=== PATIENT | female | born 1965 | race Caucasian/White ===

== ENCOUNTER 2016-10-27 05:58 | Emergency (ER) | payer MEDICAID, OTHER ==
[~2016-10-27] VITALS: Ht 157.5 cm; Wt 61.5 kg
[2016-10-27 06:05] VITALS: Ht 157.5 cm; Wt 61.5 kg
[2016-10-27] MEDS ORDERED: SOD CHLORIDE 0.9% 1,000 ML IV STA (06:15)
--- NOTE | 2016-10-27 06:45 | RADRPT ---
PROCEDURE: XR Chest. CLINICAL INDICATION: Syncope TECHNIQUE: Portable single view of the chest COMPARISON: None. FINDINGS: The heart size appears within normal limits. Slight aortic calcification is seen. No acute infiltr ate, pleural effusion, or overt congestive heart failure is seen. No bony abnormality is seen. IMPRESSION: Aortic atherosclerosis. RPTAT: [facility] Kortney Estrada Physician Date Time Electronically viewed and signed by Kortney Estrada, Physician on 10/27/2016 06:45 LE/
[2016-10-27 06:52] LABS: ADD SCAN DIFF NO
[2016-10-27 07:00] LABS: BASOPHILS % 0.4 % (0.0-2.0); EOSINOPHILS # 0.3 10^3/ul (0.0-0.5); HEMATOCRIT 39.3 % (37.0-47.0); HEMOGLOBIN 13.2 g/dl (12.0-16.0); LYMPHOCYTES # 1.9 10^3/ul (0.8-2.9); LYMPHOCYTES % 18.2 % (15.0-51.0); MEAN CORPUSCULAR HEMOGLOBIN 31.1 pg (29.0-33.0); MEAN CORPUSCULAR HGB CONC 33.6 g/dl (32.0-37.0); MEAN CORPUSCULAR VOLUME 92.5 fl (82.0-101.0); MEAN PLATELET VOLUME 9.5 fl (7.4-10.4); MONOCYTE # 0.5 10^3/ul (0.3-0.9); MONOCYTES % 5.2 % (0.0-11.0); NEUTROPHIL # 7.6 10^3/ul (1.6-7.5); NEUTROPHILS % 72.9 % (39.0-77.0); PLATELET COUNT 271 10^3/UL (140-415); RED BLOOD COUNT 4.25 10^6/ul (4.20-5.40); WHITE BLOOD COUNT 10.4 10^3/ul (4.8-10.8)
--- NOTE | 2016-10-27 07:04 | RADRPT ---
PROCEDURE: CT Brain without contrast. CLINICAL INDICATION: Syncope TECHNIQUE: Axial images from the skull base through the vertex without IV contrast. Multiplanar r eformatted images were made. Images were reviewed on a PACS workstation. The CTDIvol is 45.01 mGy and the DLP is 720.23 mGycm. One or more of the following dose reduction techniques were used: auto mated exposure control, adjustment of the mA and/or kV according to patient size, or use of iterativ e reconstruction technique. COMPARISON: None. FINDINGS: The ventricles and cisterns are normal for age. There is no evidence for territorial infarction or intracranial hemorrhage. No mass or midline shift is seen. No extra-axial fluid collection is seen . The visualized paranasal sinuses and mastoids are clear. IMPRESSION: No definite acute intracranial abnormality. RPTAT: [facility] Physician Galilea Date Time Electronically viewed and signed by Physician Galilea on 10/27/2016 07:04 [email or web address]/
[2016-10-27 07:09] LABS: CHLORIDE 108 mmol/L (97-110); SODIUM 141 mmol/L (135-144)
[2016-10-27 07:10] LABS: POTASSIUM 3.7 mmol/L (3.5-5.1)
[2016-10-27 07:12] LABS: CREATININE 0.62 mg/dl (0.44-1.00)
[2016-10-27 07:13] LABS: ANION GAP 7 (8-16); BLOOD UREA NITROGEN 8 mg/dl (7-20); CALCIUM 9.2 mg/dl (8.4-10.2); CARBON DIOXIDE 30 mmol/L (21-31); GLUCOSE 107 mg/dl (70-220)
[2016-10-27 07:25] LABS: TROPONIN-I < 0.012 ng/ml (0.00-0.12)
[2016-10-27 07:48] LABS: URINE BILIRUBIN (Dip) NEGATIVE (NEGATIVE); URINE BLOOD (Dip) NEGATIVE (NEGATIVE); URINE COLOR LT. YELLOW (YELLOW); URINE GLUCOSE (Dip) NEGATIVE (NEGATIVE); URINE KETONES (Dip) NEGATIVE (NEGATIVE); URINE LEUKOCYTE ESTERASE (Dip) NEGATIVE (NEGATIVE); URINE NITRITE (Dip) NEGATIVE (NEGATIVE); URINE UROBILINOGEN (Dip) 0.2 E.U./dL (0.1-1.0)
[2016-10-27 07:49] LABS: ADD UMIC NO; URINE TOTAL PROTEIN (Dip) NEGATIVE (NEGATIVE)
[2016-10-27 07:52] VITALS: BP 98/66; PULSE 66; RESP 18
--- NOTE | 2016-10-27 08:16 | ERA ---
ER Documentation Chief Complaint Date/Time DATE: 10/27/16 TIME: 08:15 Chief Complaint multiple syncopal episodes since 0300 am. aox4 during intake HPI This is a 51-year-old female suffered 3-4 syncopal episodes in the last 12 hours. No seizure-like activity. No palpitations. Patient said she felt lightheaded every single time. No nausea no vomiting no chills. No chest pain. Patient has no medical history and is not on any current medications. ROS All systems reviewed and are negative except as per history of present illness. Medications Home Meds No Active Prescriptions or Reported Meds Allergies Allergies: Coded Allergies: No Known Drug Allergies (Verified Allergy, Unknown, 10/27/16) PMhx/Soc Medical and Surgical Hx: pt denies Medical Hx, pt denies Surgical Hx History of Surgery: No Anesthesia Reaction: No Hx Neurological Disorder: No Hx Respiratory Disorders: No Hx Cardiac Disorders: No Hx Psychiatric Problems: No Hx Miscellaneous Medical Probl: No Hx Alcohol Use: No Hx Substance Use: No Hx Tobacco Use: No Smoking Status: Never smoker Physical Exam Vitals Vital Signs Date Time Temp Pulse Resp B/P Pulse Ox O2 Delivery O2 Flow Rate FiO2 10/27/16 07:52 66 18 98/66 98 Room Air 10/27/16 06:05 97.1 48 20 99/65 98 Physical Exam Const: [] Head: Atraumatic Eyes: Normal Conjunctiva ENT: Normal External Ears, Nose and Mouth. Neck: Full range of motion..~ No meningismus. Resp: Clear to auscultation bilaterally Cardio: Regular rate and rhythm, no murmurs Abd: Soft, non tender, non distended. Normal bowel sounds Skin: No petechiae or rashes Back: No midline or flank tenderness Ext: No cyanosis, or edema Neur: Awake and alert Psych: Normal Mood and Affect Result Diagram: 10/27/1645 10/27/1645 Results 24 hrs Laboratory Tests Test 10/27/16 06:11 10/27/16 06:34 10/27/16 06:45 Bedside Glucose 82mg/dL 105mg/dL White Blood Count 10.410^3/ul Red Blood Count 4.2510^6/ul Hemoglobin 13.2g/dl Hematocrit 39.3% Mean Corpuscular Volume 92.5fl Mean Corpuscular Hemoglobin 31.1pg Mean Corpuscular Hemoglobin Concent 33.6g/dl Red Cell Distribution Width 14.0% Platelet Count 66819^3/UL Mean Platelet Volume 9.5fl Neutrophils % 72.9% Lymphocytes % 18.2% Monocytes % 5.2% Eosinophils % 3.0% Basophils % 0.4% Nucleated Red Blood Cells % 0.0/100WBC Neutrophils # 7.610^3/ul Lymphocytes # 1.910^3/ul Monocytes # 0.510^3/ul Eosinophils # 0.310^3/ul Basophils # 0.010^3/ul Nucleated Red Blood Cells # 0.010^3/ul Urine Color LT. YELLOW Urine Clarity CLEAR Urine pH 7.5 Urine Specific [place] Path 1.015 Urine Ketones NEGATIVE Urine Nitrite NEGATIVE Urine Bilirubin NEGATIVE Urine Urobilinogen 0.2 E.U./dL Urine Leukocyte Esterase NEGATIVE Urine Hemoglobin NEGATIVE Urine Glucose NEGATIVE% Urine Total Protein NEGATIVE Sodium Level 141mmol/L Potassium Level 3.7mmol/L Chloride Level 108mmol/L Carbon Dioxide Level 30mmol/L Anion Gap 7 Blood Urea Nitrogen 8mg/dl Creatinine 0.62mg/dl Glucose Level 107mg/dl Calcium Level 9.2mg/dl Troponin I < 0.012ng/ml Current Medications Medications (Trade) Dose Ordered Sig/Bianca Route PRN Reason Start Time Stop Time Status Last Admin Dose Admin Sodium Chloride (NS) 1,000 ml @ 1,000 mls/hr Q1H STAT IV 10/27/16 06:15 10/27/16 07:14 DC 10/27/16 06:42 Procedures/MDM EKG: Rate/Rhythm: Normal Sinus Rhythm QRS, ST, T-waves: No changes consistent w/ acute ischemia Impression: No evidence of ischemia or arrhythmia Chest X-ray 1V Interpreted by me: Soft Tissue: No acute abnormalities Bones: No acute abnormalities Mediastinum/Cardiac Silhouette/Lungs: No acute abnormalities Head CT read as negative by radiologist. Please see dictation for report. Patient's syncopal symptoms are unstable at this time and require inpatient workup. No evidence of PE or dissection at this time but occult ischemia or fatal dysrhythmia cannot be ruled out. Patient will be admitted to the [facility] physician Dr. Rooney at 8 am Departure Diagnosis: Primary Impression: Syncope Qualified Code: R55 - Syncope, unspecified syncope type Condition: Serious LUISANA PAGE October 27, 2016 08:16
== END 2016-10-27 08:50 | disposition left against medical advice (07) ==
LOC: E/R 05:58
DX: R55 Syncope and collapse (principal)
CPT/HCPCS: 36415; 70450; 71010; 80048; 81003; 82962; 84484; 85025; 93005; 99285; J7030